=== PATIENT | female | born 1940 | race Caucasian/White ===

== ENCOUNTER 2020-09-12 09:17 | Inpatient (IN) ==
[2020-09-12] MEDS ORDERED: MoRPHine SULFATE 2 MG/ML CARP IV PRN (09:32)
[2020-09-12] MEDS: MoRPHine SULFATE 4 MG/ML 1 ML CARP\\VIAL IV PRN ×2 (10:00→11:20)
[2020-09-12 10:17] LABS: Basophils # (auto) 0.06 K/uL (0-0.2); Basophils % (auto) 0.6 %; Eosinophils # (auto) 0.22 K/uL (0-0.5); Eosinophils % (auto) 2.3 %; Hematocrit (blood only) 38.9 % (37-47); Hemoglobin 13.5 g/dL (12.0-16.0); Immature Granulocytes # (auto) 0.11 K/uL (0.00-0.02); Immature Granulocytes % (auto) 1.2 %; Lymphocytes # (auto) 1.74 K/uL (1.2-3.4); Lymphocytes % (auto) 18.6 %; Mean Corpuscular Hemoglobin 30.4 pg (25-34); Mean Corpuscular Hgb Conc 34.7 g/dL (32-36); Mean Corpuscular Volume 87.6 fL (80-100); Mean Platelet Volume 10.1 fL (7.4-10.4); Monocytes % (auto) 10.7 %; Neutrophils # (auto) 6.24 K/uL (1.4-6.5); Neutrophils % (auto) 66.6 %; Platelet Count 391 K/uL (130-400); RDW Coefficient of Variation 14.7 % (11.5-14.5); RDW Standard Deviation 47.3 fL (36.4-46.3); Red Blood Count 4.44 M/uL (4.2-5.4); White Blood Count 9.37 K/uL (4.8-10.8)
[2020-09-12 10:27] LABS: Prothrombin Time 9.8 Seconds (9.0-12.0)
[2020-09-12 10:36] LABS: Alanine Aminotransferase 37 U/L (12-78); Albumin Level 3.6 gm/dl (3.4-5.0); Aspartate Aminotransferase 40 U/L (15-37); BUN Creatinine Ratio 22.6 (10-20); Blood Urea Nitrogen 15 mg/dl (7-18); Calcium 9.7 mg/dl (8.5-10.1); Carbon Dioxide 24 mmol/L (21-32); Chloride 104 mmol/L (98-107); Creatinine Clr Calc Pharmacy 60.6 ml/min; Est GFR (Non-African American) 82.8; Glucose 110 mg/dl (70-99); Potassium 3.5 mmol/L (3.5-5.1); Sodium 137 mmol/L (136-145)
[2020-09-12 10:40] LABS: Albumin Globulin Ratio 1.2 (0.9-2); Alkaline Phosphatase 61 U/L (45-117); Bilirubin,Total 0.4 mg/dl (0.2-1); Total Protein 6.6 gm/dl (6.4-8.2); Troponin I < 0.015 ng/ml (0-0.045)
--- NOTE | 2020-09-12 10:47 | CT Scan Report ---
HEAD CT NONCONTRAST CT DOSE: 898.74 mGy.cm HISTORY: fall TECHNIQUE: Multiaxial CT images of the head were performed without the use of intravenous contrast. A utomated exposure control was utilized for this study. A dose lowering technique was utilized adheri ng to the principles of ALARA. Comparison: None. Findings: The paranasal sinuses and mastoid air cells are clear. The calvarium and skull base are int act. There is no mass, hematoma, midline shift, acute infarct. White matter hypodensity is nonspecifi c but suggestive of microvascular ischemic change. The ventricles and sulci demonstrate mild age-rela cady involutional changes. Impression: No acute intracranial abnormality. ACT 112: Negative or not required by law. Electronically signed by: Kenneth Lee M.D. 09/12/2020 10:46 AM
--- NOTE | 2020-09-12 10:48 | Emergency Department Note ---
Impression & Plan Pelvic fracture, Fall, Acute chest wall pain ED Provider Note NAME: FLAVIO BENNETT AGE: 79 SEX: F : 1940 ARRIVES VIA: Ambulance INFORMANT: Patient ED PROVIDER(S): Taco Walls DO CHIEF COMPLAINT: Fall HPI: Patient is an 79-year-old female who presents the ER following a mechanical fall. She notes that she was walking down the steps at the [employer] and thought she was on the last step and fell onto left hip. She denies any loss of consciousness. She does not remember hitting her head or neck. She admits to chest pain under her left breast following the fall in combination with left hip pain. Pain is worse with movement of her left hip and pelvis. Rest improves it. Denies any tingling or numbness. No other exacerbating or remitting fa ctors. ROS: See above HPI for pertinent positives & negatives. A total of 10 systems reviewed and were otherwise negative. PAST MEDICAL HISTORY:See Below PAST SURGICAL HISTORY:See Below FAMILY HISTORY:See Below SOCIAL HISTORY:See Below HOME MEDICATIONS:See Below ALLERGIES:See Below VITALS:See Below PHYSICAL EXAMINATION: GENERAL: alert, laying on left side moderate distress HEAD: normal cephalic, atraumatic EYE EXAM: normal conjunctiva, PERRL and EOM's grossly intact OROPHARYNX: no exudate, no erythema, lips, buccal mucosa, and tongue normal and mucous membranes are moist NECK: supple, no nuchal rigidity, no adenopathy, non-tender CHEST: stable to compression anteriorly and posteriorly LUNGS: clear to auscultation. Normal chest wall mechanics HEART: no murmurs, S1 normal and S2 normal ABDOMEN: abdomen soft, non-tender, normo-active bowel sounds, no masses, no rebound or guarding. PELVIS: stable to compression anteriorly and posteriorly BACK: Back is symmetrical on inspection and there is no deformity, no midline tenderness, no CVA tenderness. UPPER EXTREMITIES: No tenderness throughout bilateral upper extremities on palpation. LOWER EXTREMITIES: Flexion-extension right hip knee ankle without tenderness throughout the entire extremity. Tenderness over the left hip and proximal femur. No tenderness throughout the knee or ankle. DPs intact. NEURO EXAM: Normal sensorium, cranial nerves II-XII grossly intact, normal speech, no gross weakness of arms, no gross weakness of legs. GCS: 15. MEDICAL DECISION MAKING: Patient is an 79-year-old female who presents the ER following mechanical fall as she missed a step onto her left hip. IV was established blood was obtained. Labs show no significant leukocytosis or anemia. INR unremarkable. BMP along with LFTs bilirubin and troponin was negative. CT of the head and cervical spine were unremarkable. X-rays of the hip and pelvis showed old fracture. X- rays of the ribs show no acute fractures. CT abdomen pelvis confirms acute on chronic pelvic ring fracture. Patient was updated bedside. Given multiple dose of narcotics. Discussed with hospitalist admitted for further work-up. Triage Nursing notes reviewed. Limited review of prior medical records performed Vital Signs: reviewed and remarkable for no significant abnormalities Differential diagnosis: Differential diagnoses include major intracranial, cervical, spinal, thoracic, abdominal, pelvic and neurologic injury. Fracture, contusion, sprain, strain, laceration, abrasions included as well. ER treatment provided: See below Diagnostics interpreted by me: ECG: none Cardiac Monitoring: An order was placed for continuous cardiac monitoring. The monitor shows a rate of 99 with sinus rhythm. Laboratory studies: As stated above and show below. Imaging studies: CT of the head, cervical spine and pelvis shows left pubic ring fracture Consultation(s): Discussed with Haily for further evaluation Procedures: none Critical Care: None Past Med/Surg History Medical History (Updated 09/12/20 @ 14:22 by Taco Walls DO) Lumbar spinal stenosis Surgical History (Updated 09/12/20 @ 14:02 by Yenny Roberts PA-C) History of appendectomy History of cholecystectomy Social History Smoking Status: Never smoker Feels Safe at Home: Yes Allergies Allergies Allergy/AdvReac Type Severity Reaction Status Date / Time No Known Allergies Allergy Unverified 09/12/20 10:12 Home Meds Home Medications Medication Instructions Recorded Confirmed gabapentin 100 mg PO DAILY 09/12/20 09/12/20 Results & Data (ED) Vital Signs Vital Signs - 24 hr 09/12/20 09:31 09/12/20 10:00 09/12/20 10:01 Temperature 36.4 C L Temperature Source Oral Pulse Rate 100 H 94 H Pulse Rate from SpO2 Sensor 93 H Respiratory Rate 18 18 Blood Pressure 144/110 H 127/85 Blood Pressure Mean 121 99 Pulse Oximetry 99 99 98 Oxygen Delivery Method Room Air Oxygen Flow Rate Sepsis Recent Fever Within 48 Hours No Sepsis New/Unexplained Change in Mental Status No Sepsis Action Taken by Nursing No Action Required 09/12/20 10:11 09/12/20 11:30 09/12/20 13:01 Temperature Temperature Source Pulse Rate 92 H 100 H 99 H Pulse Rate from SpO2 Sensor 92 H 100 H Respiratory Rate 15 16 21 Blood Pressure 118/72 110/67 Blood Pressure Mean 87 81 Pulse Oximetry 96 91 98 Oxygen Delivery Method Nasal Cannula Oxygen Flow Rate 3 Sepsis Recent Fever Within 48 Hours Sepsis New/Unexplained Change in Mental Status Sepsis Action Taken by Nursing Laboratory Data Result diagrams: 09/12/20 09:50 09/12/20 09:50 Lab Results 09/12/20 09/12/20 09/12/20 Range/Units 09:50 09:50 09:50 WBC 9.37 (4.8-10.8) K/uL RBC 4.44 (4.2-5.4) M/uL Hgb 13.5 (12.0-16.0) g/dL Hct 38.9 (37-47) % MCV 87.6 (80-100) fL MCH 30.4 (25-34) pg MCHC 34.7 (32-36) g/dL RDW Std Deviation 47.3 H (36.4-46.3) fL RDW Coeff of Chana 14.7 H (11.5-14.5) % Plt Count 391 (130-400) K/uL MPV 10.1 (7.4-10.4) fL Immature Gran % (Auto) 1.2 % Neut % (Auto) 66.6 % Lymph % (Auto) 18.6 % [place] % (Auto) 10.7 % Eos % (Auto) 2.3 % Baso % (Auto) 0.6 % Neut # (Auto) 6.24 (1.4-6.5) K/uL Lymph # (Auto) 1.74 (1.2-3.4) K/uL [place] # (Auto) 1.00 H (0.11-0.59) K/uL Eos # (Auto) 0.22 (0-0.5) K/uL Baso # (Auto) 0.06 (0-0.2) K/uL Immature Gran # (Auto) 0.11 H (0.00-0.02) K/uL PT 9.8 (9.0-12.0) Seconds INR 1.0 (0.9-1.1) Sodium 137 (136-145) mmol/L Potassium 3.5 (3.5-5.1) mmol/L Chloride 104 (98-107) mmol/L Carbon Dioxide 24 (21-32) mmol/L Anion Gap 9.0 (3-11) BUN 15 (7-18) mg/dl Creatinine 0.66 (0.6-1.2) mg/dl Est Cr Clr Drug Dosing 60.6 ml/min Est GFR ( Amer) 96.0 Est GFR (Non-Af Amer) 82.8 BUN/Creatinine Ratio 22.6 H (10-20) Glucose 110 H (70-99) mg/dl Calcium 9.7 (8.5-10.1) mg/dl Total Bilirubin 0.4 (0.2-1) mg/dl AST 40 H (15-37) U/L ALT 37 (12-78) U/L Alkaline Phosphatase 61 (45-117) U/L Troponin I < 0.015 (0-0.045) ng/ml Total Protein 6.6 (6.4-8.2) gm/dl Albumin 3.6 (3.4-5.0) gm/dl Globulin 3.0 (2.5-4.0) gm/dl Albumin/Globulin Ratio 1.2 (0.9-2) Administered Medications Morphine Sulfate (Morphine Sulfate 4 Mg/Ml 1 Ml Carp\Vial) 4 mg IV Q1H PRN PRN Reason: Severe Pain (Rating 7,8,9,10) Stop: 09/26/20 09:31 Last Admin: 09/12/20 11:20 Dose: 4 mg Documented by: [id number] Admin: 09/12/20 10:00 Dose: 4 mg Documented by: [id number] Discharge Plan Visit Data Chief Complaint: Fall ED Provider: Taco Walls Discharge Problem: Pelvic fracture, Fall, Acute chest wall pain Forms Stand Alone Forms: [employer] Prescriptions Prescriptions: No Action gabapentin 100 mg Capsule 100 mg PO DAILY RF: 0 Discharge Problem: Pelvic fracture Qualifiers: Encounter type: initial encounter Pelvic bone location: unspecified part of pe lvis Fracture type: closed Fracture alignment: nondisplaced Qualified Code(s): S32.9XXA - Fracture of unspecified parts of lumbosacral spine and pelvis, initial encounter for closed fracture Fall Qualifiers: Encounter type: initial encounter Qualified Code(s): W19.XXXA - Unspecified fall, initial encounter
--- NOTE | 2020-09-12 10:56 | CT Scan Report ---
CERVICAL SPINE CT CT DOSE: HISTORY: Neck pain. fall TECHNIQUE: Multiaxial CT images of the cervical spine were performed and reformatted in the sagittal and coronal plane without the use of contrast. A dose lowering technique was utilized adhering to e principles of ALARA. COMPARISON: None. FINDINGS: No fractures. No subluxation. Prevertebral soft tissues and the C1-C2 interval are intact. No pneumothorax. A 1.4 cm right thyroid nodule. This does not require further imaging. Moderate to se hailey degenerative disc disease throughout the majority of the cervical spine. There is slight reversa l of the normal lordotic curvature within the upper cervical spine. IMPRESSION: No fractures within the cervical spine. ACT 112: Negative or not required by law. Electronically signed by: Kenneth Lee M.D. 09/12/2020 10:54 AM
--- NOTE | 2020-09-12 11:25 | XRay Report ---
XR hip LT 2V w pelvis CLINICAL HISTORY: fall. Pelvic and left hip pain. COMPARISON STUDY: None. FINDINGS: Slightly rotated study. Left pubic ring deformity likely representing an old, healed fractu re. No acute fracture or dislocation within the bilateral hips. The sacrum is intact. Moderate stool within the rectum. IMPRESSION: 1. No acute fracture or dislocation within the bilateral hips. 2. Left pubic ring deformity. This favors an old, healed fracture. ACT 112: Negative or not required by law. Electronically signed by: Kenneth Lee M.D. 09/12/2020 11:24 AM
--- NOTE | 2020-09-12 11:30 | XRay Report ---
XR ribs LT min 2V w CXR1V CLINICAL HISTORY: fall rib pain COMPARISON STUDY: None. FINDINGS: No pneumothorax. No pleural effusions. The heart is normal in size. There are low lung volu mes. No focal lung consolidations to suggest pneumonia. No evidence for pulmonary edema. Mild residua l thickening is likely chronic. Old, healed left lateral second through sixth rib fractures. No defin ite acute rib fractures. IMPRESSION: 1. Old, healed left lateral second through sixth rib fractures. No definite acute rib fractures. 2. No pneumothorax. ACT 112: Negative or not required by law. Electronically signed by: Kenneth Lee M.D. 09/12/2020 11:29 AM
--- NOTE | 2020-09-12 12:25 | CT Scan Report ---
ABDOMEN AND PELVIS CT WITHOUT CONTRAST CT DOSE: 488.61 mGycm HISTORY: fall left hip pain/pelvis pain TECHNIQUE: Multiaxial CT images of the abdomen and pelvis were performed without contrast. A dose lo wering technique was utilized adhering to the principles of ALARA. COMPARISON STUDY: None. FINDINGS: There is a 5 mm subpleural nodule within the right middle lobe on image 9. No pneumoperiton eum. No pneumatosis. There is normal, healed left pubic ring fracture. There is also an acute nondisp laced fracture within the left superior pubic ramus which extends to the anterior column of the left acetabulum. This also extends to the articular surface. There is a large cystic lesion within the tammie tral liver measuring 9 cm. This appears to represent the markedly distended gallbladder. There is als o intra and extra hepatic bile duct dilatation with the common bile duct measuring up to 13 mm. Calci fication along the spleen. The adrenal glands unremarkable. There is also a mildly dilated distal cintia n pancreatic duct measuring up to 6 mm in diameter. There is 7.4 cm exophytic hypodense lesion within the lower pole of the right kidney. This favors a cyst. No retroperitoneal lymphadenopathy. The blad radha is unremarkable. The uterus is surgically absent. Moderate well-formed stool within the rectum. C olonic diverticulosis. No evidence for acute diverticulitis. Suboptimal evaluation for bowel patholog y due to the lack of intravenous and oral contrast. However, there is no definite bowel wall thickeni ng or obstruction. IMPRESSION: 1. Acute on chronic nondisplaced left superior pubic ramus/acetabular fracture. 2. Large cystic lesion within the central liver measuring 9 cm in diameter. This appears to represent the markedly distended gallbladder. There is also intra and extra hepatic bile duct dilatation as we ll as mild dilatation of the distal main pancreatic duct. Follow-up GI consultation to evaluate for a distal obstructive process is recommended. 3. Additional findings as described above. ACT 112: Negative or not required by law. Electronically signed by: Kenneth Lee M.D. 09/12/2020 12:24 PM
--- NOTE | 2020-09-12 13:26 | Electrocardiogram Report ---
Test Reason : Blood Pressure : / mmHG Vent. Rate : 096 BPM Atrial Rate : 096 BPM P-R Int : 136 ms QRS Dur : 078 ms QT Int : 372 ms P-R-T Axes : 071 068 -22 degrees QTc Int : 469 ms Poor data quality, interpretation may be adversely affected Normal sinus rhythm Nonspecific ST abnormality Abnormal ECG No previous ECGs available Confirmed by Jean-Paul Miller ([id number]) on 09/12/2020 1:25:43 PM Referred By: Confirmed By:Jean-Paul Miller
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
[2020-09-12 15:15] LABS: Appearance Urine Clear (Clear); Bilirubin Urine Negative (Negative); Blood Urine Negative (Negative); Color Urine Dark Yellow; Glucose Urine UA Negative (Negative); Ketones Urine 4+ (Negative); Leukocyte Esterase Urine Negative (Negative); Nitrite Urine Negative (Negative); Protein Urine Negative (Negative); Specific Gravity Urine 1.018 (1.000-1.030); Urobilinogen Urine Negative (Negative)
[2020-09-12 15:54] LABS: Influenza A virus by PCR Negative (Neg); Influenza B virus by PCR Negative (Neg); RSV by PCR Negative (Neg); SARS CoV2 RNA(COVID-19) InHosp NEGATIVE (Negative)
[2020-09-12] MEDS ORDERED: ONDANSETRON INJ 2 MG/ML 2 ML VIAL IV PRN (17:31)
[2020-09-12] MEDS: HYDROmorphone INJ 0.5 MG/0.5 ML SYR IV PRN (18:38)
[2020-09-12] MEDS: ENOXAPARIN INJ 40 MG/0.4 ML SYR SQ SCH (19:05)
[2020-09-12] MEDS: LIDOCAINE 5% 1 PATCH TD SCH (20:29)
[2020-09-13 06:15] LABS: Hematocrit (blood only) 36.8 % (37-47); Hemoglobin 12.7 g/dL (12.0-16.0); Mean Corpuscular Hemoglobin 30.4 pg (25-34); Mean Corpuscular Hgb Conc 34.5 g/dL (32-36); Mean Platelet Volume 9.9 fL (7.4-10.4); Platelet Count 336 K/uL (130-400); RDW Coefficient of Variation 14.9 % (11.5-14.5); Red Blood Count 4.18 M/uL (4.2-5.4); White Blood Count 9.61 K/uL (4.8-10.8)
[2020-09-13 06:54] LABS: BUN Creatinine Ratio 22.4 (10-20); Calcium 8.7 mg/dl (8.5-10.1); Creatinine Clr Calc Pharmacy 75.4 ml/min; Est GFR (African American) 103.2; Potassium 3.9 mmol/L (3.5-5.1)
[2020-09-13] MEDS: CALCIUM 600MG + VIT D 400 IU TAB PO SCH (09:22)
[2020-09-13] MEDS: VITAMIN B COMPLEX TAB PO SCH (09:22)
[2020-09-13] MEDS: MAGNESIUM OXIDE 400 MG TAB PO SCH (09:22)
[2020-09-13] MEDS: CHOLECALCIFEROL 1,000 UNITS 25 MCG TAB PO SCH (09:22)
[2020-09-13] MEDS: GABAPENTIN 100 MG CAP PO SCH (09:22)
[2020-09-13] MEDS: LIDOCAINE 5% 1 PATCH TD SCH (09:24)
[2020-09-13] MEDS: ACETAMINOPHEN 325 MG TAB PO PRN (09:30)
--- NOTE | 2020-09-13 09:53 | XRay Report ---
XR chest 1V portable HISTORY: 79 years-old Female Chest pain s/p fall acute atypical chest pain COMPARISON: Chest and rib radiographs 09/12/2020 TECHNIQUE: Portable AP view of the chest FINDINGS: Cardiomediastinal and hilar silhouettes are within normal limits. Calcified plaque the thoracic aorta . No pneumothorax. Unchanged blunting of the costophrenic angles. No pneumothorax, pleural effusion, airspace consolidation or overt pulmonary edema. Degenerative changes of the shoulders and spine. IMPRESSION: No acute process. ACT 112: Negative or not required by law. The above report was generated using voice recognition software. It may contain grammatical, syntax o r spelling errors. Electronically signed by: Raul Kamara M.D. 09/13/2020 9:52 AM
--- NOTE | 2020-09-13 10:09 | Hospitalist Progress Note ---
Date of Service September 13, 2020 Assessment & Plan (1) Fall: (2) Pelvic fracture: (3) Acute chest wall pain: Patient is an 79 yo female who suffered a mechanical fall without head injury or loss of consciousness. Med/Surg Upon evaluation, she was found to have acute on chronic pelvic fracture. She is having groin pain. She was given Morphine in the ED. Continue Tylenol PRN mild pain, Oxycodone PRN moderate pain, Dilaudid PRN severe pain. Ortho consultation. She is also having chest wall pain. It's reproducible, Rib X-rays showed old fractures on the left, but no new fractures. Repeat CXR today is negative. May need to consider Chest/sternum CT to R/O fracture if pain continued. Lidocaine patch to the area for pain relief. Fall precautions. PT/OT per orthopedic recommendations. Weight bearing per Ortho recs. Recheck CBC, BMP Patient is DNR/DNI per discussion today (4) Abnormal CT of the abdomen: Patient has history of cholecystectomy. Noted on CT to have distention of the ducts in this area with a probable cyst in the area. She does have family history (daughter) of cholangiocarcinoma. Discussed these images with radiology- low suspicion for a mass. Consult GI for opinion. Patient is not symptoms and LFTs are within norm (5) Lumbar spinal stenosis: Continue gabapentin 100 mg daily (6) DVT prophylaxis: Lovenox Labs Checked ROS-No Headache, No Visual Changes, No Nausea, No Vomiting, No Fever, No Chills, No Neck Pain or Stiffness, No Chest Pain, No Palpitations, No SOB, No GEE, No Cough, No Sputum, No Wheezing, No Abdominal Pain, No Diarrhea, No Hematemesis, No Hemoptysis, No Unexpected Weight Loss, No Flank pain, No Melena, No Hematochezia, No Frequency, No Urgency, No Burning, No Hematuria, No Rashes, No Diaphoresis. Appetite is Normal, Sore Hips Physical Exam Gen-AAO x 3, NAD, Afebrile Head-NCAT, EOMI, PERRLA, Anicteric Sclera, No Posterior Pharyngeal Erythema Neck-Supple, No JVD, No Thyromegaly, No Masses, No LAD, No Bruits Lungs-Clear to Auscultation Bilaterally, No Rales, No Rhonchi, No Wheezing, No Crepitus Chest-No S4, +S1, +S2, No S3, No Murmurs, No Rubs, No Gallops, No Ectopy Abdomen-Soft, Bowel Sounds Present, Non Tender, Non Distended, No Hepatomegaly, No Splenomegaly, No Palpable Masses, No Rebound, No Rigidity, No Guarding Musculoskeletal-No CVAT Extremities-No Cyanosis, No Clubbing, No Edema Nuero-Cranial Nerves II-XII grossly intact, Motor WNL, DTRs WNL, Strength WNL, Non Focal Psych-Normal Mood Admission and Anticipated Discharge Date Admission Date: September 12, 2020 Results & Data Results & Data ([facility]) Vital Signs (Past 12 Hours) Vital Signs Temp Pulse Resp BP Pulse Ox 09/13/20 07:46 37.4 C 86 16 111/70 93 09/12/20 22:54 36.8 C 89 16 113/70 93 (1) Fall Encounter type: initial encounter Qualified Code(s): W19.XXXA - Unspecified fall, initial encounter (2) Pelvic fracture Encounter type: initial encounter Fracture alignment: nondisplaced Fracture type: closed Pelvic bone location: unspecified part of pelvis Qualified Code(s): S32.9XXA - Fracture of unspecified parts of lumbosacral spine and pelvis, initial encounter for closed fracture
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
[2020-09-13] MEDS: HYDROmorphone INJ 0.5 MG/0.5 ML SYR IV PRN (18:03)
[2020-09-13] MEDS ORDERED: POLYETHYLENE (MIRALAX) 17 GM PACK PO PRN (19:54)
[2020-09-13] MEDS: ENOXAPARIN INJ 40 MG/0.4 ML SYR SQ SCH (20:43)
[2020-09-14 06:54] LABS: Mean Corpuscular Hemoglobin 30.4 pg (25-34); Mean Corpuscular Hgb Conc 34.2 g/dL (32-36); Mean Corpuscular Volume 88.8 fL (80-100); Platelet Count 287 K/uL (130-400); RDW Coefficient of Variation 14.9 % (11.5-14.5); RDW Standard Deviation 48.6 fL (36.4-46.3); Red Blood Count 4.28 M/uL (4.2-5.4); White Blood Count 8.22 K/uL (4.8-10.8)
[2020-09-14 07:20] LABS: Calcium 8.8 mg/dl (8.5-10.1); Creatinine Clr Calc Pharmacy 81.6 ml/min; Est GFR (African American) 105.9; Est GFR (Non-African American) 91.4; Potassium 3.6 mmol/L (3.5-5.1)
[2020-09-14] MEDS: CALCIUM 600MG + VIT D 400 IU TAB PO SCH (08:30)
[2020-09-14] MEDS: MAGNESIUM OXIDE 400 MG TAB PO SCH (08:30)
[2020-09-14] MEDS: VITAMIN B COMPLEX TAB PO SCH (08:30)
[2020-09-14] MEDS: GABAPENTIN 100 MG CAP PO SCH (08:30)
[2020-09-14] MEDS: CHOLECALCIFEROL 1,000 UNITS 25 MCG TAB PO SCH (08:30)
[2020-09-14] MEDS: LIDOCAINE 5% 1 PATCH TD SCH (08:30)
[2020-09-14] MEDS: ACETAMINOPHEN 325 MG TAB PO PRN ×2 (08:32→12:56)
--- NOTE | 2020-09-14 11:52 | Hospitalist Progress Note ---
Date of Service September 14, 2020 Assessment & Plan (1) Fall: (2) Pelvic fracture: (3) Acute chest wall pain: Patient is an 79 yo female who suffered a mechanical fall without head injury or loss of consciousness. Acute on chronic pelvic fractures Appreciate orthopedics input. Continue conservative management. Oxycodone for moderate and Dilaudid for severe breakthrough. Tylenol as needed for mild pain. Patient also reports left subcostal pain where she fell. X-ray revealed old rib fractures. Encouraged incentive spirometer. Lidocaine patch for pain relief as well. Fall precautions. Work with PT/OT today. Left lower extremity is nonweightbearing. Patient have not had bowel movement for the past few days. She is on as needed MiraLAX, in addition we will also order senna/Colace. Patient complains of pain in the left ankle and left wrist. Studies have been ordered. (4) Abnormal CT of the abdomen: Patient has history of cholecystectomy. Noted on CT to have distention of the ducts in this area with a probable cyst in the area. She does have family history (daughter) of cholangiocarcinoma. Appreciate gastroenterology input. Plan for MRCP/possible EUS as an outpatient. Follow-up with gastroenterology as an outpatient. (5) Lumbar spinal stenosis: Continue gabapentin 100 mg daily (6) DVT prophylaxis: Lovenox Admission and Anticipated Discharge Date Admission Date: September 12, 2020 Subjective Patient appears she has discomfort in the left subcostal region on the side she fell. Also reports that she has been having pain in the left ankle denies any chest pain or shortness of breath. Denies any abdominal pain, diarrhea or dysuria. Does report left flank pain. Have not been out of the bed yet. States she feels gassy and have not had a bowel movement yet for the last few days. Review of Systems Review of Systems: All systems reviewed & are unremarkable except as noted in HPI & below Physical Exam Physical Exam: General: A&Ox3 HENT: NCAT, MMM, EOMI Eyes: PERRLA Neck: Supple, normal range of motion CVS: normal rate and rhythm Resp: b/l decrease breath sounds, minimal left subcostal tenderness Abdomen: Soft, ND/NT, +BS Extremities: absence of any edema Neuro: face symmetric, strength grossly equal, no focal deficit Skin: warm and dry, no rashes/lesions/errythema MSK: normal ROM, no joint swelling/erythema Results & Data Results & Data ([facility]) Vital Signs (Past 12 Hours) Vital Signs Temp Pulse Resp BP Pulse Ox 09/14/20 07:18 37.2 C 85 18 117/76 93 (1) Fall Encounter type: initial encounter Qualified Code(s): W19.XXXA - Unspecified fall, initial encounter (2) Pelvic fracture Encounter type: initial encounter Fracture alignment: nondisplaced Fracture type: closed Pelvic bone location: unspecified part of pelvis Qualified Code(s): S32.9XXA - Fracture of unspecified parts of lumbosacral spine and pelvis, initial encounter for closed fracture
--- NOTE | 2020-09-14 12:48 | XRay Report ---
XR ankle RT min 3V routine HISTORY: 79 years-old Female right ankle pain acute lateral right ankle pain COMPARISON: None TECHNIQUE: 3 views of the right ankle FINDINGS: Moderate soft tissues lung of the ankle, most pronounced anteromedially. Demineralized appearance the bones. Mild tibiotalar, subtalar and midfoot osteoarthritis. Moderate sized plantar enthesophyte of the calcaneus. IMPRESSION: Soft tissue swelling without acute fracture. ACT 112: Negative or not required by law. The above report was generated using voice recognition software. It may contain grammatical, syntax o r spelling errors. Electronically signed by: Raul Kamara M.D. 09/14/2020 12:47 PM
--- NOTE | 2020-09-14 12:50 | XRay Report ---
XR wrist LT min 3V routine HISTORY: 79 years-old Female left wrist xray acute left-sided wrist pain without reported trauma COMPARISON: None TECHNIQUE: 4 views of the left wrist FINDINGS: Demineralized appearance of the bones. Mild radiocarpal with moderate first carpometacarpal osteoarth ritis. There is an acute nondisplaced fracture of the distal radial metaphysis. Mild dorsal cortical buckling of approximately 3 mm. No intra-articular extension identified. Mild circumferential soft ti ssue lung of the distal radius and wrist. IMPRESSION: Acute nondisplaced fracture of the distal radial metaphysis. ACT 112: Negative or not required by law. The above report was generated using voice recognition software. It may contain grammatical, syntax o r spelling errors. Electronically signed by: Raul Kamara M.D. 09/14/2020 12:49 PM
[2020-09-14] MEDS: DOCUSATE SODIUM 100 MG CAP PO SCH ×2 (12:56→20:27)
[2020-09-14] MEDS: SENNA 8.6 MG TAB PO SCH (12:56)
[2020-09-14] MEDS: HYDROmorphone INJ 0.5 MG/0.5 ML SYR IV PRN (20:26)
[2020-09-14] MEDS: ENOXAPARIN INJ 40 MG/0.4 ML SYR SQ SCH (20:27)
[2020-09-15] MEDS ORDERED: bisacodyL 10 MG SUPP PR STA (08:31)
[2020-09-15] MEDS: DOCUSATE SODIUM 100 MG CAP PO SCH ×2 (09:09→19:57)
[2020-09-15] MEDS: CHOLECALCIFEROL 1,000 UNITS 25 MCG TAB PO SCH (09:09)
[2020-09-15] MEDS: GABAPENTIN 100 MG CAP PO SCH (09:09)
[2020-09-15] MEDS: VITAMIN B COMPLEX TAB PO SCH (09:09)
[2020-09-15] MEDS: CALCIUM 600MG + VIT D 400 IU TAB PO SCH (09:10)
[2020-09-15] MEDS: MAGNESIUM OXIDE 400 MG TAB PO SCH (09:10)
[2020-09-15] MEDS: SENNA 8.6 MG TAB PO SCH (09:10)
[2020-09-15] MEDS: LIDOCAINE 5% 1 PATCH TD SCH (09:10)
[2020-09-15] MEDS: ADVANCED PROBIOTIC 1250 MG CAPSULE PO SCH (09:21)
[2020-09-15] MEDS: HYDROmorphone INJ 0.5 MG/0.5 ML SYR IV PRN ×2 (09:21→16:51)
--- NOTE | 2020-09-15 14:12 | Hospitalist Progress Note ---
Date of Service September 15, 2020 Assessment & Plan (1) Fall: (2) Pelvic fracture: (3) Acute chest wall pain: Patient is an 79 yo female who suffered a mechanical fall without head injury or loss of consciousness. Acute on chronic pelvic fractures Left nondisplaced radial fracture Appreciate orthopedics input. Continue conservative management. Oxycodone for moderate and Dilaudid for severe breakthrough. Tylenol as needed for mild pain. Patient also reports left subcostal pain where she fell. X-ray revealed old rib fractures. Encouraged incentive spirometer. Lidocaine patch for pain relief as well. Fall precautions. Work with PT/OT today. Left lower extremity is nonweightbearing. Patient have not had bowel movement for the past few days. She is on as needed MiraLAX, in addition we will also order senna/Colace. Ordered suppository today. Orthopedics was contacted, they recommended to consult orthotics for splint placement for the left wrist. Care management requested for authorization which is approved for tomorrow. Patient can be discharged to rehab tomorrow morning. (4) Abnormal CT of the abdomen: Patient has history of cholecystectomy. Noted on CT to have distention of the ducts in this area with a probable cyst in the area. She does have family history (daughter) of cholangiocarcinoma. Appreciate gastroenterology input. Plan for MRCP/possible EUS as an outpatient. Follow-up with gastroenterology as an outpatient. (5) Lumbar spinal stenosis: Continue gabapentin 100 mg daily (6) DVT prophylaxis: Lovenox Admission and Anticipated Discharge Date Admission Date: September 12, 2020 Subjective Overall patient is doing okay. However at the moment her primary complaint is significant pain in the left wrist. Still has not had a bowel movement. Denies any chest pain, shortness of breath, abdominal pain, dysuria or any weakness. Rest of the review of system is negative. Review of Systems Review of Systems: All systems reviewed & are unremarkable except as noted in HPI & below Physical Exam Physical Exam: General: A&Ox3 HENT: NCAT, MMM, EOMI Eyes: PERRLA Neck: Supple, normal range of motion CVS: normal rate and rhythm Resp: b/l decrease breath sounds, minimal left subcostal tenderness Abdomen: Soft, ND/NT, +BS Extremities: absence of any edema, left wrist tenderness Neuro: face symmetric, strength grossly equal, no focal deficit Skin: warm and dry, no rashes/lesions/errythema MSK: normal ROM, no joint swelling/erythema Results & Data Results & Data ([facility]) Vital Signs (Past 12 Hours) Vital Signs Temp Pulse Resp BP Pulse Ox 09/15/20 07:24 36.8 C 88 16 123/79 95 (1) Fall Encounter type: initial encounter Qualified Code(s): W19.XXXA - Unspecified fall, initial encounter (2) Pelvic fracture Encounter type: initial encounter Fracture alignment: nondisplaced Fracture type: closed Pelvic bone location: unspecified part of pelvis Qualified Code(s): S32.9XXA - Fracture of unspecified parts of lumbosacral spine and pelvis, initial encounter for closed fracture
--- NOTE | 2020-09-15 18:38 | Communication Note ---
Date of Service: September 15, [address] Bhatia concerning a new xray finding for the left wrist. Pt continued c/o left wrist pain and xray was obtained. Showing nondisplaced distal radius fx. Xrays reviewed. Non displaced fx noted. Cockup splint ordered and applied by Orthotics team. Stopped in to see pt this evening. She states she is doing much better since having the splint applied. Less pain now. Discussed NWB status on left wrist. Will need to use platform walker for PT. Continue to keep splint snug. ROM of fingers as tolerated. Splint on at all times except for bathing. Follow up with Dr. Galvez in 2 weeks.
[2020-09-15] MEDS: ENOXAPARIN INJ 40 MG/0.4 ML SYR SQ SCH (19:57)
[2020-09-15] MEDS: oxyCODONE HCL IR 5 MG TAB (IMMEDIATE RELEASE) PO PRN (23:17)
[2020-09-15] MEDS: ACETAMINOPHEN 325 MG TAB PO PRN (23:18)
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
[2020-09-16] MEDS: MAGNESIUM OXIDE 400 MG TAB PO SCH (08:50)
[2020-09-16] MEDS: SENNA 8.6 MG TAB PO SCH (08:50)
[2020-09-16] MEDS: DOCUSATE SODIUM 100 MG CAP PO SCH (08:50)
[2020-09-16] MEDS: ADVANCED PROBIOTIC 1250 MG CAPSULE PO SCH (08:50)
[2020-09-16] MEDS: LIDOCAINE 5% 1 PATCH TD SCH (08:51)
[2020-09-16] MEDS: CHOLECALCIFEROL 1,000 UNITS 25 MCG TAB PO SCH (08:51)
[2020-09-16] MEDS: CALCIUM 600MG + VIT D 400 IU TAB PO SCH (08:51)
[2020-09-16] MEDS: GABAPENTIN 100 MG CAP PO SCH (08:51)
[2020-09-16] MEDS: VITAMIN B COMPLEX TAB PO SCH (08:51)
[2020-09-16] MEDS: oxyCODONE HCL IR 5 MG TAB (IMMEDIATE RELEASE) PO PRN (09:01)
[2020-09-16] MEDS: ACETAMINOPHEN 325 MG TAB PO PRN (09:01)
== END 2020-09-16 11:42 | DRG 536 ==
LOC: ED 09:17 → 3N 13:56 → SUATTDRO 13:56 → 3N 17:14